=== PATIENT | male | born 1960 | race Caucasian/White ===

== ENCOUNTER 2017-07-13 09:38 | Emergency (ER) | payer OTHER ==
--- NOTE | 2017-07-13 10:08 | ED Physician Documentation ---
PD HPI FOCAL NEURO - Stated complaint Stated Complaint: CONFUSION - Chief complaint Chief Complaint: Neuro - History obtained from History obtained from: Patient, Family - History of Present Illness Timing - onset: How many days ago (2) Timing - duration: Days (2) Timing - details: Abrupt onset, Still present Severity of deficit: Moderate Weakness: No: Face, Arm, Hand, Leg, Foot, Right, Left Numbness: No: Face, Arm, Hand, Leg, Foot, Right, Left Associated symptoms: No: Headache, Nausea / vomiting, Seizure Contributing factors: negative: Anticoagulated, Atrial fibrillation Baseline status: positive: A&OX3, ambulatory, indep Similar symptoms before: Has not had sx before Recently seen: Not recently seen - Additional information Additional information: 57-year-old male with acute onset of right-sided incoordination 2 days ago. He denies any specific weakness to the right side but he does state that when this started he had a significant pain in the right arm that shot down to his fingertips and his arm hand was in a flexed position for about 1 minute. Since that time he has had incoordination of the right hand and is listing when he goes to walk. He has some dizziness and some slight confusion. His is found him walking to the bathroom when he was supposed to walk out the door. Patient has not had similar symptoms previously. He does have a family history of stroke in his father and uncles. Review of Systems Constitutional: denies: Fever Eyes: denies: Decreased vision Ears: denies: Ear pain Nose: denies: Congestion Throat: denies: Sore throat Cardiac: denies: Chest pain / pressure, Palpitations Respiratory: denies: Dyspnea, Cough GI: denies: Abdominal Pain, Nausea, Vomiting : denies: Dysuria, Frequency Skin: denies: Rash Musculoskeletal: denies: Neck pain, Back pain, Extremity pain, Joint pain Neurologic: reports: Confused. denies: Generalized weakness, Focal weakness, Numbness, Difficulty speaking, Headache, Head injury PD PAST MEDICAL HISTORY - Present Medications Home Medications: Ambulatory Orders Medication Instructions Recorded Confirmed No Known Home Medications [No 07/13/17 07/13/17 Known Home Medications] - Allergies Allergies/Adverse Reactions: Allergies Allergy/AdvReac Type Severity Reaction Status Date / Time No Known Drug Allergies Allergy Verified 07/13/17 09:48 PD ED PE NORMAL - Vitals Vital signs reviewed: Yes (hypertensive ) - General General: Alert and oriented X 3, No acute distress, Well developed/nourished, Other (flat affect) - HEENT HEENT: Atraumatic, PERRL, Ears normal, Moist mucous membranes, Pharynx benign, Dentition benign - Neck Neck: Supple, no meningeal sign, No bony TTP, No bruit - Cardiac Cardiac: RRR, No murmur - Respiratory Respiratory: No respiratory distress, Clear bilaterally - Abdomen Abdomen: Soft, Non tender - Back Back: No CVA TTP, No spinal TTP - Derm Derm: Normal color, Warm and dry, No rash - Extremities Extremities: No deformity, No edema - Neuro Neuro: No motor deficit, No sensory deficit Eye Opening: Spontaneous Motor: Obeys Commands Verbal: Oriented GCS Score: 15 - Psych Psych: Normal mood, Normal affect NIHSS - Time Time: 10:00 - Level of Consciousness Level of consciousness: (0) Alert, Keenly responsive LOC Questions: (0) Answers both Q's correct LOC Commands: (0) Performs both correctly - Gaze Best Gaze: (0) Normal - Visual Visual: (0) No loss - Facial Palsy Facial Palsy: (0) Normal, symmetrical movement - Motor Arms (both separate) Motor Arm (right): (0) No drift Motor Arm (left): (0) No drift - Motor Legs (both separate) Motor Leg (right): (0) No drift Motor Leg (left): (0) No drift - Limb Ataxia Limb Ataxia: (1) Present in 1 limb - Sensory Sensory: (0) Normal - Best Language Best Language: (0) No aphasia - Dysarthria Dysarthria: (0) Normal - Extinction and Inattention (formally neg Extinction and inattention: (0) No abnormality - Total Score/Results Total Score/Result: 1 Results - Vitals Vitals: Vital Signs - 24 hr 07/13/17 07/13/17 07/13/17 09:43 10:18 11:04 Temperature 36.7 C Heart Rate 74 67 62 Respiratory 16 14 16 Rate Blood Pressure 140/90 H 140/87 H 144/89 H O2 Saturation 99 94 96 07/13/17 07/13/17 12:29 12:30 Temperature Heart Rate 62 54 L Respiratory 16 16 Rate Blood Pressure 131/83 H 126/85 H O2 Saturation 98 98 Oxygen O2 Source Room air - EKG (time done) 0959 Rate: Rate (enter#) (71) Rhythm: NSR, LAE QRS: LVH Compare to prior EKG: Old EKG unavailable Computer interpretation: Agree with computer - Labs Labs: Laboratory Tests 07/13/17 07/13/17 07/13/17 10:05 10:05 10:05 WBC 7.6 RBC 5.44 Hgb 17.0 Hct 49.0 MCV 90.0 MCH 31.2 H MCHC 34.7 RDW 13.3 Plt Count 145 MPV 9.3 Neut # 5.7 Lymph # 1.5 Hendry # 0.2 Eos # 0.1 Baso # 0.0 Absolute Nucleated RBC 0.00 Nucleated RBC % 0.0 Sodium 139 Potassium 3.6 Chloride 103 Carbon Dioxide 24 Anion Gap 12.0 BUN 13 Creatinine 0.9 Estimated GFR (MDRD) 87 L Glucose 131 H Calcium 10.0 Total Bilirubin 0.9 AST 29 ALT 37 Alkaline Phosphatase 64 Troponin I < 0.04 Total Protein 8.0 Albumin 4.9 Globulin 3.1 Albumin/Globulin Ratio 1.6 Lipase 26 - Rads (name of study) CT head without Radiology: Prelim report reviewed (Impression: 1. Heterogeneous largely high attenuation 3.9 x 3.6 x 3.7 cm posterior left frontal/left parietal mass with adjacent parenchymal edema and mass-effect. Additionally, ill-defined area of high attenuation is seen along the right parietal lobe with an area of ill- defined high attenuation measuring up to 1.6 cm. Further detail with MRI recommended.), EMP read indepedently, See rad report PD MEDICAL DECISION MAKING - ED course Complexity details: reviewed results, re-evaluated patient, considered differential, d/w patient, d/w family, d/w service consultant ([facility] ED course: 57-year-old previously well male has had a specific right arm pain and weakness that has improved and started about [address] scan is found to have a large brain tumor. Dr. Royal Tony at [facility] is consulted in the case and recommends transfer the patient to [facility] and administration of dexamethasone 10 mg intravenously and Keppra 1 g intravenously. Departure - Departure Disposition: 02 Transfer Acute Care Hosp Clinical Impression: Brain tumor, Stroke-like symptoms Condition: Serious
[2017-07-13 10:38] LABS: BASOPHILS % (AUTO) 0.5 %; EOSINOPHILS # (AUTO) 0.1 10^3/uL (0.0-0.7); LYMPHOCYTES # (AUTO) 1.5 10^3/uL (1.5-3.5); LYMPHOCYTES % (AUTO) 20.1 %; MEAN CORPUSCULAR HEMOGLOBIN 31.2 pg (27.0-31.0); MEAN CORPUSCULAR HGB CONC 34.7 g/dL (32.0-36.0); MEAN PLATELET VOLUME 9.3 fL (7.4-11.4); MONOCYTES # (AUTO) 0.2 10^3/uL (0.0-1.0); MONOCYTES % (AUTO) 2.9 %; NEUTROPHILS # (AUTO) 5.7 10^3/uL (1.5-6.6); NEUTROPHILS % (AUTO) 75.5 %; RED BLOOD COUNT 5.44 10^6/uL (4.70-6.10); RED CELL DISTRIBUTION WIDTH 13.3 % (12.0-15.0); UNCORRECTED WHITE BLOOD COUNT 7.6 x10^3/uL; WHITE BLOOD COUNT 7.6 x10^3/uL (4.8-10.8)
[2017-07-13 10:41] LABS: ALBUMIN/GLOBULIN RATIO 1.6 (1.0-2.2); BILIRUBIN,TOTAL 0.9 mg/dL (0.2-1.0); CREATININE 0.9 mg/dL (0.6-1.2); POTASSIUM 3.6 mmol/L (3.5-5.0)
--- NOTE | 2017-07-13 11:51 | CT Report ---
EXAM: CT HEAD EXAM DATE: 07/13/2017 11:04 AM. CLINICAL HISTORY: Right sided weakness. COMPARISON: None. TECHNIQUE: Multiaxial CT images were obtained from the foramen magnum to the vertex. Reformats: Coron al. IV contrast: None. In accordance with CT protocol optimization, one or more of the following dose reduction techniques w ere utilized for this exam: automated exposure control, adjustment of mA and/or KV based on patient s ize, or use of iterative reconstructive technique. FINDINGS: Parenchyma: Intraparenchymal heterogeneous largely high attenuation masses seen along the posterior l eft frontal and anterior left parietal lobe measuring 3.9 x 3.6 x 3.7 cm with some central low attenu ation. Adjacent edema is evident with mass effect upon the adjacent left cerebral hemisphere. There a re areas of ill-defined low-attenuation also seen along the right parietal lobe possibly with an area of high attenuation along the alvares matter seen on axial image 22 with the area measuring 1.6 cm. Extraaxial Spaces: Normal for age. No subdural or epidural collections identified. Ventricles: No hydrocephalus. Mass effect upon the left lateral ventricle by the left high attenuatio n parenchymal cerebral mass. Sinuses and Orbits: Imaged paranasal sinuses, orbits, and mastoids show no significant abnormality. Bones: No evidence of fracture or calvarial defect. Other: Globes and orbits are unremarkable. Vascular calcifications are noted. IMPRESSION: 1. Heterogeneous largely high attenuation 3.9 x 3.6 x 3.7 cm posterior left frontal/left parietal mas s with adjacent parenchymal edema and mass effect. Additionally, ill-defined area of high attenuation is seen along the right parietal lobe with an area of ill-defined high attenuation measuring up to 1 .6 cm. Further detail with MRI recommended. Findings discussed with Dr. Boss following the study at 11:40 AM on 07/13/2017. [facility] Referring Provider Line: [phone] SITE ID: [id number]
[2017-07-13] MEDS ORDERED: levETIRAcetam INJ 1,000 MG in SODIUM CHLORIDE 0.9% 100ML 100 ML IV STA (13:43)
[2017-07-13] MEDS ORDERED: DEXAMETHASONE 10 MG/ML VIAL IVP STA (13:43)
[2017-07-13] MEDS ORDERED: DEXAMETHASONE 10 MG/ML VIAL ONE (13:53)
[2017-07-13 16:29] VITALS: BP 147/80
[2017-07-13] MEDS ORDERED: NICOTINE 14 MG PATCH TOP STA (16:41)
[2017-07-13] MEDS ORDERED: NICOTINE 14 MG PATCH TOP ONE (16:48)
== END 2017-07-13 18:51 | disposition short-term general hospital (02) ==
LOC: ED 09:38
DX: D49.6 Neoplasm of unspecified behavior of brain (principal)
CPT/HCPCS: 36415; 70450; 80053; 83690; 84484; 85025; 93005; 96365; 96375; 99284; 99285; A9270

== ENCOUNTER 2017-07-13 18:55 | Outpatient (CLI) | payer OTHER | END 2017-07-13 18:56 | disposition short-term general hospital (02) | LOC: EMS 18:55 | PROVIDERS: ATTEND Surgery | DX: D49.6 Neoplasm of unspecified behavior of brain (principal) | CPT/HCPCS: A0170; A0425; A0426 ==

== ENCOUNTER 2017-10-15 22:16 | Emergency (ER) | payer MEDICAID, OTHER ==
[2017-10-15 22:49] LABS: BASOPHILS % (AUTO) 0.2 %; EOSINOPHILS # (AUTO) 0.1 10^3/uL (0.0-0.7); LYMPHOCYTES # (AUTO) 1.6 10^3/uL (1.5-3.5); LYMPHOCYTES % (AUTO) 22.5 %; MEAN CORPUSCULAR HEMOGLOBIN 31.8 pg (27.0-31.0); MEAN CORPUSCULAR HGB CONC 34.3 g/dL (32.0-36.0); MEAN CORPUSCULAR VOLUME 92.7 fL (80.0-94.0); MEAN PLATELET VOLUME 7.7 fL (7.4-11.4); MONOCYTES # (AUTO) 0.5 10^3/uL (0.0-1.0); MONOCYTES % (AUTO) 7.1 %; NEUTROPHILS % (AUTO) 69.2 %; PLT - PLATELET COUNT 193 10^3/uL (130-450); RED CELL DISTRIBUTION WIDTH 17.9 % (12.0-15.0); WHITE BLOOD COUNT 7.2 x10^3/uL (4.8-10.8)
[2017-10-15 23:02] LABS: ALBUMIN 4.3 g/dL (3.2-5.5); ALBUMIN/GLOBULIN RATIO 1.1 (1.0-2.2); BILIRUBIN,TOTAL 0.6 mg/dL (0.2-1.0); CREATININE 0.9 mg/dL (0.6-1.2); TOTAL PROTEIN 8.1 g/dL (6.7-8.2)
--- NOTE | 2017-10-16 00:20 | ED Physician Documentation ---
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 also c/o generalized headache Review of Systems Constitutional: reports: Reviewed and negative Eyes: reports: Reviewed and negative Cardiac: reports: Reviewed and negative Respiratory: reports: Reviewed and negative GI: reports: Nausea, Vomiting. denies: Abdominal Pain Neurologic: reports: Headache. denies: Generalized weakness, Focal weakness, Numbness, Altered mental status PD PAST MEDICAL HISTORY - Past Medical History Past Medical History: Yes Cardiovascular: None Respiratory: Other Neuro: Headache/migraine Endocrine/Autoimmune: None GI: None : None HEENT: None Psych: None Musculoskeletal: Osteoarthritis Derm: None Other Past Medical History: Brain CA - Past Surgical History Past Surgical History: Yes Ortho: Arthroscopic surgery, Carpal Tunnel surgery HEENT: Tonsil/Adenoidectomy - Present Medications Home Medications: Ambulatory Orders Medication Instructions Recorded Confirmed Hydrocodone/Acetaminophen [Vicodin 1 tab PO Q8HR PRN 10/15/17 10/15/17 5-300 mg Tablet] Levetiracetam [Keppra] 1 tab PO BID 10/15/17 10/15/17 Ondansetron HCl [Zofran] 1 tab PO Q8HR PRN 10/15/17 10/15/17 Ranitidine HCl [Acid Control] 1 tab PO BID 10/15/17 10/15/17 Ondansetron Odt [Zofran] 4 mg TL Q6H PRN #14 tablet 10/16/17 Promethazine [Phenergan] 25 - 50 mg PO Q6H PRN #10 tab 10/16/17 - Allergies Allergies/Adverse Reactions: Allergies Allergy/AdvReac Type Severity Reaction Status Date / Time chlorhexidine Allergy Rash Verified 10/15/17 22:47 - Social History Does the pt smoke?: Yes Smoking Status: Current every day smoker Does the pt drink ETOH?: No - Immunizations Immunizations are current?: Yes - POLST Patient has POLST: No PD ED PE NORMAL - Vitals Vital signs reviewed: Yes - General General: Alert and oriented X 3, No acute distress, Well developed/nourished - HEENT HEENT: PERRL, EOMI, Moist mucous membranes - Neck Neck: Supple, no meningeal sign - Cardiac Cardiac: RRR, No murmur - Respiratory Respiratory: No respiratory distress, Clear bilaterally - Abdomen Abdomen: Normal bowel sounds, Soft, Non tender, Non distended - Derm Derm: Normal color, Warm and dry - Extremities Extremities: No edema - Neuro Neuro: Alert and oriented X 3, tube room supervisor 2-12 intact, No motor deficit, No sensory deficit, Normal speech Eye Opening: Spontaneous Motor: Obeys Commands Verbal: Oriented GCS Score: 15 Results - Vitals Vitals: Oxygen O2 Source Room air - Labs Labs: Laboratory Tests 10/15/17 10/15/17 22:37 22:37 WBC 7.2 RBC 4.40 L Hgb 14.0 Hct 40.8 L MCV 92.7 MCH 31.8 H MCHC 34.3 RDW 17.9 H Plt Count 193 MPV 7.7 Neut # 5.0 Lymph # 1.6 Grady # 0.5 Eos # 0.1 Baso # 0.0 Absolute Nucleated RBC 0.01 Nucleated RBC % 0.1 Sodium 136 Potassium 3.7 Chloride 100 L Carbon Dioxide 24 Anion Gap 12.0 BUN 9 Creatinine 0.9 Estimated GFR (MDRD) 87 L Glucose 111 H Calcium 10.0 Total Bilirubin 0.6 AST 25 ALT 54 Alkaline Phosphatase 51 Total Protein 8.1 Albumin 4.3 Globulin 3.8 Albumin/Globulin Ratio 1.1 Lipase 22 PD MEDICAL DECISION MAKING - ED course Complexity details: reviewed results, re-evaluated patient, considered differential, d/w patient, d/w family ED course: reported good symptom relief after IV fluids and zofran. CT results discussed. case d/w covering hem/onc, they looked at patients recent MRI and note that the 2.6 cm lesion was exact same size at that time (thus has not enlarged from most recent study), and he suspects the edema is due to recent treatment. can d/ c if lady. po. patient tolerated PO in ED and was comfortable with d/c home Departure - Departure Disposition: Home, Self Care Clinical Impression: Vomiting, Brain tumor Condition: Good Instructions: ED Nausea Vomiting Follow-Up: Tasneem Walker MD [Primary Care Provider] - Prescriptions: Ondansetron Odt [Zofran] 4 mg TL Q6H PRN #14 tablet PRN Reason: Nausea / Vomiting Promethazine [Phenergan] 25 - 50 mg PO Q6H PRN #10 tab PRN Reason: Nausea / Vomiting Discharge Date/Time: 10/16/17 05:07
[2017-10-16] MEDS ORDERED: SODIUM CHLORIDE 0.9% 1,000 ML IV STA (00:32)
[2017-10-16] MEDS ORDERED: ONDANSETRON 4 MG/2 ML VIAL IVP STA (00:32)
--- NOTE | 2017-10-16 01:28 | CT Report ---
EXAM: CT HEAD EXAM DATE: 10/16/2017 12:55 AM. CLINICAL HISTORY: Headache, h/o brain CA. COMPARISON: 07/13/2017. TECHNIQUE: Multiaxial CT images were obtained from the foramen magnum to the vertex. Reformats: Coron al. IV contrast: None. In accordance with CT protocol optimization, one or more of the following dose reduction techniques w ere utilized for this exam: automated exposure control, adjustment of mA and/or KV based on patient s ize, or use of iterative reconstructive technique. FINDINGS: Parenchyma: Patient status post interval left parietal craniotomy. There is a resection cavity in reg ion of prior 3.9 cm left parietal mass. There is interval increase in size of right parietal mass. Th ere is a peripheral lesion with mixed high and low density measuring 2.4 x 2.6 x 2.3 cm in transverse dimensions. (Versus previously 1.7 x 2.5 x 2.1 cm). There is interval increase in right parietal vas ogenic edema. There is right parietal sulcal effacement. There is effacement of the posterior horn of right lateral ventricle. No midline shift. Extraaxial Spaces: Normal for age. No subdural or epidural collections identified. Sinuses and Orbits: Imaged paranasal sinuses, orbits, and mastoids show no significant abnormality. Bones: No evidence of fracture or calvarial defect. Other: None. IMPRESSION: 1. Interval increase in size of 2.6 cm right parietal mass with worsening edema. [facility] Referring Provider Line: [phone] SITE ID: [id number]
--- NOTE | 2017-10-16 01:28 | CT Preliminary Report ---
Exam: CT HEAD W/O IMPRESSION: 1. Interval increase in size of 2.6 cm right parietal mass with worsening edema. [facility] SITE ID: [id number]
[2017-10-16] MEDS ORDERED: DEXAMETHASONE 10 MG/ML VIAL IVP STA (04:51)
[2017-10-16 05:07] VITALS: BP 125/86
== END 2017-10-16 05:07 | disposition home or self-care (01) ==
LOC: ED 22:16
DX: R11.10 Vomiting, unspecified (principal); C43.9 Malignant melanoma of skin, unspecified; C79.31 Secondary malignant neoplasm of brain; F17.200 Nicotine dependence, unspecified, uncomplicated; Z92.21 Personal history of antineoplastic chemotherapy
CPT/HCPCS: 36415; 70450; 80053; 83690; 85025; 96361; 96374; 96375; 99284

== ENCOUNTER 2018-04-09 18:20 | Outpatient (CLI) | payer MEDICAID | END 2018-04-09 18:21 | disposition short-term general hospital (02) | LOC: EMS 18:20 | PROVIDERS: ATTEND Surgery | DX: R07.89 Other chest pain (principal); R06.02 Shortness of breath | CPT/HCPCS: A0425; A0427; A0999 ==